=== PATIENT | male | born 1940 | race Caucasian/White ===

== ENCOUNTER → 2017-09-03 | Outpatient (CLI) | payer MEDICARE, OTHER | LOC: LAB 10:07 | DX: M86.00 Acute hematogenous osteomyelitis, unspecified site (principal) ==

== ENCOUNTER → 2017-09-10 | Outpatient (CLI) | payer MEDICARE, OTHER ==
[2017-09-10 12:30] LABS: POTASSIUM 4.9 mmol/L (3.6-5.0)
[2017-09-10 12:46] LABS: HEMATOCRIT 36.8 % (42.0-52.0); HEMOGLOBIN 11.2 g/dL (13.5-18.0); MEAN CELL VOLUME 90 fl (78-100); MEAN CORPUSCULAR HEMOGLOBIN 27 pg (27-31); MEAN CORPUSCULAR HGB CONC 30 g/dL (33-37); PLATELET COUNT 150 K/mm3 (130-400); RED BLOOD COUNT 4.11 M/mm3 (4.20-5.60); RED CELL DISTRIBUTION WIDTH 23.1 % (11.5-14.5); WHITE BLOOD COUNT 7.8 K/mm3 (4.8-10.8)
[2017-09-10 13:49] LABS: MEAN PLATELET VOLUME 12.4 fl (7.4-10.4)
[2017-09-10 13:50] LABS: LYMPHOCYTE 15 % (20-51); MONOCYTE 11 % (3-10); NEUTROPHILS 67 % (42-75)
[2017-09-10 14:02] LABS: BUN/CREATININE RATIO 6.3 (6.0-26.0); CALCIUM 9.1 mg/dL (8.4-10.2); TOTAL BILIRUBIN 0.5 mg/dL (0.2-1.3); TOTAL PROTEIN 7.8 g/dL (6.3-8.2)
[2017-09-10 14:17] LABS: ERYTHROCYTE SEDIMENTATION RATE 35 mm/hr (0-20)
== END ==
LOC: LAB 11:51
DX: M86.00 Acute hematogenous osteomyelitis, unspecified site (principal)

== ENCOUNTER → 2017-09-18 | Outpatient (CLI) | payer MEDICARE, OTHER ==
[2017-09-18 10:15] LABS: HEMATOCRIT 37.6 % (42.0-52.0); HEMOGLOBIN 11.3 g/dL (13.5-18.0); MEAN CELL VOLUME 91 fl (78-100); MEAN CORPUSCULAR HEMOGLOBIN 27 pg (27-31); MEAN CORPUSCULAR HGB CONC 30 g/dL (33-37); PLATELET COUNT 109 K/mm3 (130-400); RED BLOOD COUNT 4.12 M/mm3 (4.20-5.60); RED CELL DISTRIBUTION WIDTH 24.4 % (11.5-14.5); WHITE BLOOD COUNT 5.9 K/mm3 (4.8-10.8)
[2017-09-18 10:20] LABS: ALBUMIN 3.8 g/dL (3.5-5.0); BUN/CREATININE RATIO 4.6 (6.0-26.0); CALCIUM 8.4 mg/dL (8.4-10.2); POTASSIUM 4.9 mmol/L (3.6-5.0); TOTAL BILIRUBIN 0.5 mg/dL (0.2-1.3); TOTAL PROTEIN 7.6 g/dL (6.3-8.2)
[2017-09-18 11:10] LABS: MEAN PLATELET VOLUME 12.1 fl (7.4-10.4)
[2017-09-18 11:11] LABS: LYMPHOCYTE 14 % (20-51); MONOCYTE 13 % (3-10); NEUTROPHILS 70 % (42-75); TARGET CELLS 1+
[2017-09-18 11:38] LABS: ERYTHROCYTE SEDIMENTATION RATE 50 mm/hr (0-20)
== END ==
LOC: LAB 09:49
DX: M86.00 Acute hematogenous osteomyelitis, unspecified site (principal)

== ENCOUNTER → 2017-09-25 | Outpatient (CLI) | payer MEDICARE, OTHER ==
[2017-09-25 11:43] LABS: HEMATOCRIT 38.3 % (42.0-52.0); HEMOGLOBIN 11.7 g/dL (13.5-18.0); MEAN CELL VOLUME 93 fl (78-100); MEAN CORPUSCULAR HEMOGLOBIN 29 pg (27-31); MEAN CORPUSCULAR HGB CONC 31 g/dL (33-37); PLATELET COUNT 122 K/mm3 (130-400); WHITE BLOOD COUNT 5.9 K/mm3 (4.8-10.8)
[2017-09-25 11:44] LABS: BUN/CREATININE RATIO 4.5 (6.0-26.0); CALCIUM 8.8 mg/dL (8.4-10.2); POTASSIUM 5.1 mmol/L (3.6-5.0); TOTAL BILIRUBIN 0.6 mg/dL (0.2-1.3); TOTAL PROTEIN 7.8 g/dL (6.3-8.2)
[2017-09-25 11:55] LABS: RED CELL DISTRIBUTION WIDTH 25.5 % (11.5-14.5)
[2017-09-25 12:25] LABS: LYMPHOCYTE 18 % (20-51); MONOCYTE 12 % (3-10); NEUTROPHILS 65 % (42-75)
[2017-09-25 12:29] LABS: HYPOCHROMIA 1+
[2017-09-25 12:44] LABS: ERYTHROCYTE SEDIMENTATION RATE 32 mm/hr (0-20)
== END ==
LOC: LAB 11:09
DX: M86.00 Acute hematogenous osteomyelitis, unspecified site (principal)

== ENCOUNTER → 2017-10-02 | Outpatient (CLI) | payer MEDICARE, OTHER ==
[2017-10-02 09:50] LABS: BUN/CREATININE RATIO 4.7 (6.0-26.0); CALCIUM 9.1 mg/dL (8.4-10.2); POTASSIUM 5.3 mmol/L (3.6-5.0); TOTAL BILIRUBIN 0.7 mg/dL (0.2-1.3); TOTAL PROTEIN 7.9 g/dL (6.3-8.2)
[2017-10-02 09:54] LABS: HEMATOCRIT 39.6 % (42.0-52.0); HEMOGLOBIN 11.9 g/dL (13.5-18.0); MEAN CELL VOLUME 95 fl (78-100); MEAN CORPUSCULAR HEMOGLOBIN 29 pg (27-31); MEAN CORPUSCULAR HGB CONC 30 g/dL (33-37); PLATELET COUNT 106 K/mm3 (130-400); RED BLOOD COUNT 4.17 M/mm3 (4.20-5.60); RED CELL DISTRIBUTION WIDTH 23.7 % (11.5-14.5); WHITE BLOOD COUNT 5.3 K/mm3 (4.8-10.8)
[2017-10-02 10:01] LABS: LYMPHOCYTE 20 % (20-51); MICROCYTOSIS 1+; MONOCYTE 17 % (3-10); NEUTROPHILS 62 % (42-75); TARGET CELLS 1+
[2017-10-03 07:17] LABS: ERYTHROCYTE SEDIMENTATION RATE 25 mm/hr (0-20)
== END ==
LOC: LAB 09:16
PROVIDERS: Student in an Organized Health Care Education/Training Program
DX: M86.00 Acute hematogenous osteomyelitis, unspecified site (principal)

== ENCOUNTER 2018-05-13 13:00 | Outpatient (RCR) | payer MEDICARE, OTHER | END 2018-05-13 13:30 | disposition home or self-care (01) | LOC: OT 13:00 | DX: I69.898 Other sequelae of other cerebrovascular disease (principal); R53.81 Other malaise; I25.10 Atherosclerotic heart disease of native coronary artery without angina pectoris; Z89.512 Acquired absence of left leg below knee; Z99.2 Dependence on renal dialysis; Z99.81 Dependence on supplemental oxygen; Z86.74 Personal history of sudden cardiac arrest | CPT/HCPCS: G8978-GP; G8979-GP ==